=== PATIENT | male | born 1955 | race Caucasian/White ===

== ENCOUNTER → 2016-10-03 | Outpatient (CLI) | payer BC ==
[2016-10-03 12:20] VITALS: BP 130/90
[2016-10-03 12:50] VITALS: BP 135/86
== END | disposition home or self-care (01) ==
LOC: CHF HDHVI 12:21
PROVIDERS: ATTEND Internal Medicine Cardiovascular Disease
DX: I11.0 Hypertensive heart disease with heart failure (principal); I25.10 Atherosclerotic heart disease of native coronary artery without angina pectoris; I48.91 Unspecified atrial fibrillation; I82.409 Acute embolism and thrombosis of unspecified deep veins of unspecified lower extremity; R79.1 Abnormal coagulation profile
CPT/HCPCS: G0463

== ENCOUNTER → 2017-01-19 | Outpatient (CLI) | payer BC ==
[~2017-01-19] MED LIST: KETOROLAC TROMETH 60MG/2ML VIAL IM ONE
[2017-01-19 09:55] VITALS: BP 131/93
[2017-01-19 10:50] VITALS: BP 130/91
[2017-01-19 14:36] LABS: INR 4.5 (0.7-1.3); Prothrombin Time 54.5 sec (9.0-12.0)
[2017-01-20 05:06] LABS: Rheumatoid Arthritis Factor <10.0 IU/mL (0.0-13.9)
== END | disposition home or self-care (01) ==
LOC: CHF HDHVI 10:07
PROVIDERS: ATTEND Internal Medicine Cardiovascular Disease
DX: M05.9 Rheumatoid arthritis with rheumatoid factor, unspecified (principal); Z13.0 Encounter for screening for diseases of the blood and blood-forming organs and certain disorders involving the immune mechanism
CPT/HCPCS: 85610; 86038; 86225; 86431; 96372; G0463; J1885

== ENCOUNTER → 2017-01-22 | Outpatient (CLI) | payer BC | END | disposition home or self-care (01) | LOC: XY 12:07 | PROVIDERS: ATTEND Internal Medicine Cardiovascular Disease | DX: R06.00 Dyspnea, unspecified (principal) | CPT/HCPCS: 78582; A9540; A9558 ==

== ENCOUNTER → 2017-02-20 | Outpatient (CLI) | payer BC ==
[2017-02-20 12:15] VITALS: BP 144/83
[2017-02-20 12:30] VITALS: BP 129/88
[2017-02-20 13:32] LABS: INR 4.6 (0.7-1.3); Prothrombin Time 55.7 sec (9.0-12.0)
== END | disposition home or self-care (01) ==
LOC: CHF HDHVI 12:32
PROVIDERS: ATTEND Internal Medicine Cardiovascular Disease
DX: I50.9 Heart failure, unspecified (principal); Z79.01 Long term (current) use of anticoagulants
CPT/HCPCS: 85610; G0463

== ENCOUNTER → 2017-03-01 | Outpatient (CLI) | payer BC ==
[2017-03-01 09:12] LABS: Prothrombin Time 24.1 sec (9.0-12.0)
== END | disposition home or self-care (01) ==
LOC: LAB 08:50
PROVIDERS: ATTEND Internal Medicine Cardiovascular Disease
DX: R79.1 Abnormal coagulation profile (principal)
CPT/HCPCS: 85610

== ENCOUNTER → 2017-04-03 | Outpatient (CLI) | payer BC ==
[2017-04-03 12:02] LABS: Prothrombin Time 24.3 sec (9.0-12.0)
== END | disposition home or self-care (01) ==
LOC: LAB 11:38
PROVIDERS: ATTEND Internal Medicine Cardiovascular Disease
DX: R79.1 Abnormal coagulation profile (principal)
CPT/HCPCS: 85610

== ENCOUNTER → 2017-05-25 | Outpatient (CLI) | payer BC ==
[2017-05-25 10:47] LABS: INR 2.9 (0.7-1.3); Prothrombin Time 35.2 sec (9.0-12.0)
== END | disposition home or self-care (01) ==
LOC: LAB 10:30
PROVIDERS: ATTEND Internal Medicine Cardiovascular Disease
DX: R79.1 Abnormal coagulation profile (principal)
CPT/HCPCS: 85610

== ENCOUNTER → 2017-06-21 | Outpatient (CLI) | payer BC ==
[~2017-06-21] VITALS: Ht 33 cm; Wt 0.5 kg
[2017-06-21 15:45] VITALS: BP 143/98
[2017-06-21 16:38] VITALS: BP 158/90
== END | disposition home or self-care (01) ==
LOC: CHF HDHVI 15:48
PROVIDERS: ATTEND Internal Medicine Cardiovascular Disease
DX: I50.9 Heart failure, unspecified (principal); I25.10 Atherosclerotic heart disease of native coronary artery without angina pectoris; E66.9 Obesity, unspecified; M54.9 Dorsalgia, unspecified; G89.29 Other chronic pain; Z79.899 Other long term (current) drug therapy
CPT/HCPCS: 96372; G0463; J1885

== ENCOUNTER → 2017-07-06 | Outpatient (CLI) | payer BC ==
[2017-07-06 12:51] LABS: Basophils # (auto) 0 uL; Basophils % (auto) 0.5 % (0.0-2.0); Eosinophils # (auto) 0.1 uL; Eosinophils % (auto) 1.1 % (0.0-7.0); Hematocrit 46.7 % (41.0-53.0); Hemoglobin 15.7 g/dL (13.5-17.5); Lymphocytes # (auto) 2.1 uL; Lymphocytes % (auto) 26.8 % (10.0-50.0); Mean Corpuscular Hemoglobin 30.2 pg (28.0-32.0); Mean Corpuscular Hgb Conc. 33.5 g/dL (32.0-36.0); Mean Platelet Volume 7.8 fL (6.9-10.8); Monocytes # (auto) 0.8 uL; Monocytes % (auto) 10.2 % (0.0-12.0); Neutrophils # (auto) 4.8 uL; Neutrophils % (auto) 61.4 % (37.0-80.0); Nucleated Red Blood Cells % 0.1 %; Platelet Count (auto) 252 10^3/uL (140-450); Red Cell Distribution Width 14.5 % (11.8-14.3); White Blood Cell 7.8 10^3/uL (4.4-10.8)
[2017-07-06 13:11] LABS: BUN/Creatinine Ratio 9.5; Bilirubin, Total 0.5 mg/dL (0.2-1.0); Calcium 8.8 mg/dL (8.5-10.1); Potassium 4.2 mmol/L (3.5-5.1); Total Protein 8.5 g/dL (6.4-8.2)
== END | disposition home or self-care (01) ==
LOC: LAB 11:41
PROVIDERS: ATTEND Internal Medicine Cardiovascular Disease
DX: I10 Essential (primary) hypertension (principal); D64.9 Anemia, unspecified; R74.8 Abnormal levels of other serum enzymes
CPT/HCPCS: 36415; 80053; 82150; 83690; 85025

== ENCOUNTER → 2017-07-20 | Outpatient (CLI) | payer BC ==
[2017-07-20 13:47] LABS: INR 2.15 (0.9-1.15); Partial Thromboplastin Time 41.1 sec (22.64-33.71); Prothrombin Time 23.6 sec (9.37-12.3)
== END | disposition home or self-care (01) ==
LOC: LAB 08:55
PROVIDERS: ATTEND Internal Medicine Cardiovascular Disease
DX: R79.1 Abnormal coagulation profile (principal)
CPT/HCPCS: 36415; 85610; 85730

== ENCOUNTER → 2017-08-20 | Outpatient (CLI) | payer BC ==
[2017-08-20 11:06] LABS: INR 2.6 (0.7-1.3); Prothrombin Time 31.1 sec (9.0-12.0)
== END | disposition home or self-care (01) ==
LOC: LAB 10:25
PROVIDERS: ATTEND Internal Medicine Cardiovascular Disease
DX: R79.1 Abnormal coagulation profile (principal)
CPT/HCPCS: 85610

== ENCOUNTER → 2019-07-09 | Outpatient (CLI) | payer MEDICARE ==
[2019-07-09 11:56] LABS: Basophils # (auto) 0.1 uL; Basophils % (auto) 1.1 % (0.0-2.0); Eosinophils # (auto) 0.1 uL; Eosinophils % (auto) 1.5 % (0.0-7.0); Hematocrit 45.1 % (41.0-53.0); Hemoglobin 15.1 g/dL (13.5-17.5); Lymphocytes # (auto) 1.6 uL; Lymphocytes % (auto) 21.9 % (10.0-50.0); Mean Corpuscular Hemoglobin 31.6 pg (28.0-32.0); Mean Corpuscular Hgb Conc. 33.5 g/dL (32.0-36.0); Mean Corpuscular Volume 94.2 fL (80.0-100.0); Monocytes # (auto) 0.5 uL; Monocytes % (auto) 6.7 % (0.0-12.0); Neutrophils % (auto) 68.8 % (37.0-80.0); Nucleated Red Blood Cells % 0.1 %; Platelet Count (auto) 230 10^3/uL (140-450); Red Blood Cells 4.78 10^6/uL (4.5-5.90); White Blood Cell 7.2 10^3/uL (4.4-10.8)
[2019-07-09 12:25] LABS: Potassium 4.4 mmol/L (3.5-5.1)
[2019-07-09 12:52] LABS: Albumin 3.9 g/dL (3.4-5.0); BUN/Creatinine Ratio 8.5; Bilirubin, Total 0.8 mg/dL (0.2-1.0); CRP High Sensitivity 0.91 mg/dL (< 0.3); Total Protein 7.5 g/dL (6.4-8.2)
== END | disposition home or self-care (01) ==
LOC: LAB 10:44
PROVIDERS: ATTEND Internal Medicine Cardiovascular Disease
DX: L40.50 Arthropathic psoriasis, unspecified (principal); I25.10 Atherosclerotic heart disease of native coronary artery without angina pectoris
CPT/HCPCS: 36415; 80053; 85025; 85652; 86141

== ENCOUNTER → 2019-07-24 | Outpatient (CLI) | payer MEDICARE | END | disposition home or self-care (01) | LOC: Rad HDHVI 08:20 | PROVIDERS: ATTEND Internal Medicine Cardiovascular Disease | DX: R07.9 Chest pain, unspecified (principal); R06.02 Shortness of breath; I10 Essential (primary) hypertension; J44.9 Chronic obstructive pulmonary disease, unspecified | CPT/HCPCS: 93306 ==

== ENCOUNTER → 2019-07-29 | Outpatient (CLI) | payer MEDICARE ==
[~2019-07-29] VITALS: Ht 193 cm; Wt 136.5 kg
[2019-07-29 12:01] LABS: Urine Blood Negative /uL (Negative); Urine Specific Gravity 1.022 (1.001-1.035)
[2019-07-29 12:07] LABS: Basophils # (auto) 0.1 uL; Basophils % (auto) 1.3 % (0.0-2.0); Eosinophils # (auto) 0.1 uL; Eosinophils % (auto) 2.3 % (0.0-7.0); Hematocrit 45.5 % (41.0-53.0); Hemoglobin 15.2 g/dL (13.5-17.5); Lymphocytes # (auto) 1.2 uL; Lymphocytes % (auto) 21.9 % (10.0-50.0); Mean Corpuscular Hgb Conc. 33.5 g/dL (32.0-36.0); Mean Corpuscular Volume 95.5 fL (80.0-100.0); Monocytes # (auto) 0.4 uL; Monocytes % (auto) 6.8 % (0.0-12.0); Neutrophils # (auto) 3.6 uL; Neutrophils % (auto) 67.7 % (37.0-80.0); Nucleated Red Blood Cells % 0.1 %; Platelet Count (auto) 204 10^3/uL (140-450); Red Blood Cells 4.77 10^6/uL (4.5-5.90); Red Cell Distribution Width 16.3 % (11.8-14.3); White Blood Cell 5.3 10^3/uL (4.4-10.8)
[2019-07-29 12:08] LABS: Potassium 4.5 mmol/L (3.5-5.1)
[2019-07-29 12:13] LABS: Free T4 (Free Thyroxine) 0.79 ng/dL (0.89-1.76); Prostate Specific Antigen 1.12 ng/mL (0.0-4.0)
[2019-07-29 12:15] LABS: INR 3.09 (0.9-1.15); Partial Thromboplastin Time 44.4 sec (23.64-32.05)
[2019-07-29 12:19] LABS: Albumin 3.8 g/dL (3.4-5.0); Bilirubin, Total 0.5 mg/dL (0.2-1.0); Total Protein 7.2 g/dL (6.4-8.2)
== END | disposition home or self-care (01) ==
LOC: Rad HDHVI 08:18
PROVIDERS: ATTEND Internal Medicine Cardiovascular Disease
DX: E03.9 Hypothyroidism, unspecified (principal); K90.9 Intestinal malabsorption, unspecified; C61 Malignant neoplasm of prostate; E29.1 Testicular hypofunction; N39.0 Urinary tract infection, site not specified; D51.9 Vitamin B12 deficiency anemia, unspecified; R79.1 Abnormal coagulation profile; Z79.899 Other long term (current) drug therapy
CPT/HCPCS: 36415; 78452; 80053; 80061; 81003; 82306; 82607; 83036; 84153; 84403; 84439; 84443; 85025; 85610; 85730; 93017; 96374; A9500

== ENCOUNTER → 2019-08-04 | Outpatient (CLI) | payer MEDICARE | END | disposition home or self-care (01) | LOC: Rad HDHVI 09:41 | PROVIDERS: ATTEND Internal Medicine | DX: R07.89 Other chest pain (principal); R06.02 Shortness of breath | CPT/HCPCS: 71046 ==

== ENCOUNTER → 2019-08-19 | Outpatient (CLI) | payer MEDICARE ==
[2019-08-19 17:13] VITALS: BP 147/73
[2019-08-19 17:14] VITALS: BP 143/77
--- NOTE | 2019-08-19 17:14 | NUR ---
Signature Attestation Statement: I BERNIE HIGUERA performed this procedure EECP on this patient. Addendum: 08/19/19 at 1714 by BERNIE HIGUERA [email or web address] Amended: Links added.
--- NOTE | 2019-08-19 17:15 | NUR ---
Signature Attestation Statement: I BERNIE HIGUERA performed this procedure EECP on this patient. Addendum: 08/19/19 at 1716 by BERNIE HIGUERA [email or web address] Amended: Links added.
--- NOTE | 2019-08-19 17:21 | NUR ---
Signature Attestation Statement: I BERNIE HIGUERA performed this procedure EECP on this patient. Addendum: 08/19/19 at 1721 by BERNIE HIGUERA [email or web address] Amended: Links added.
== END | disposition home or self-care (01) ==
LOC: CHF HDHVI 14:53
PROVIDERS: ATTEND Internal Medicine Cardiovascular Disease
DX: I25.718 Atherosclerosis of autologous vein coronary artery bypass graft(s) with other forms of angina pectoris (principal); I50.42 Chronic combined systolic (congestive) and diastolic (congestive) heart failure; J44.9 Chronic obstructive pulmonary disease, unspecified; G47.30 Sleep apnea, unspecified; R06.02 Shortness of breath; R00.2 Palpitations; R06.09 Other forms of dyspnea
CPT/HCPCS: G0166

== ENCOUNTER → 2019-08-21 | Outpatient (CLI) | payer MEDICARE ==
[2019-08-21 16:28] VITALS: BP 146/88
--- NOTE | 2019-08-21 16:29 | NUR ---
Signature Attestation Statement: I BERNIE HIGUERA performed this procedure EECP on this patient. Addendum: 08/21/19 at 1629 by BERNIE HIGUERA [email or web address] Amended: Links added.
--- NOTE | 2019-08-21 16:29 | NUR ---
Signature Attestation Statement: I BERNIE HIGUERA performed this procedure EECP on this patient. Addendum: 08/21/19 at 1630 by BERNIE HIGUERA [email or web address] Amended: Links added.
[2019-08-21 16:38] VITALS: BP 141/86
--- NOTE | 2019-08-21 16:38 | NUR ---
Signature Attestation Statement: I BERNIE HIGUERA performed this procedure EECP on this patient. Addendum: 08/21/19 at 1638 by BERNIE HIGUERA [email or web address] Amended: Links added.
--- NOTE | 2019-08-21 16:39 | NUR ---
Signature Attestation Statement: I BERNIE HIGUERA performed this procedure EECP on this patient. Addendum: 08/21/19 at 1640 by BERNIE HIGUERA [email or web address] Amended: Links added.
== END | disposition home or self-care (01) ==
LOC: CHF HDHVI 15:26
PROVIDERS: ATTEND Internal Medicine Cardiovascular Disease
DX: I25.718 Atherosclerosis of autologous vein coronary artery bypass graft(s) with other forms of angina pectoris (principal); I50.42 Chronic combined systolic (congestive) and diastolic (congestive) heart failure; J44.9 Chronic obstructive pulmonary disease, unspecified; G47.30 Sleep apnea, unspecified; R06.02 Shortness of breath; R06.09 Other forms of dyspnea; R00.2 Palpitations
CPT/HCPCS: G0166

== ENCOUNTER → 2019-08-28 | Outpatient (CLI) | payer MEDICARE ==
[2019-08-28 16:01] VITALS: BP 161/87
--- NOTE | 2019-08-28 16:01 | NUR ---
Signature Attestation Statement: I BERNIE HIGUERA performed this procedure EECP on this patient. Addendum: 08/28/19 at 1602 by BERNIE HIGUERA [email or web address] Amended: Links added.
[2019-08-28 16:26] VITALS: BP 145/85
--- NOTE | 2019-08-28 16:26 | NUR ---
Signature Attestation Statement: I BERNIE HIGUERA performed this procedure EECP on this patient. Addendum: 08/28/19 at 1626 by BERNIE HIGUERA [email or web address] Amended: Links added.
--- NOTE | 2019-08-28 16:45 | NUR ---
Signature Attestation Statement: I BERNIE HIGUERA performed this procedure EECP on this patient. Addendum: 08/28/19 at 1645 by BERNIE HIGUERA [email or web address] Amended: Links added.
== END | disposition home or self-care (01) ==
LOC: CHF HDHVI 15:28
PROVIDERS: ATTEND Internal Medicine Cardiovascular Disease
DX: I25.718 Atherosclerosis of autologous vein coronary artery bypass graft(s) with other forms of angina pectoris (principal); I50.42 Chronic combined systolic (congestive) and diastolic (congestive) heart failure; J44.9 Chronic obstructive pulmonary disease, unspecified; G47.30 Sleep apnea, unspecified; R06.02 Shortness of breath; R00.2 Palpitations; R06.09 Other forms of dyspnea
CPT/HCPCS: G0166

== ENCOUNTER → 2019-08-29 | Outpatient (CLI) | payer MEDICARE ==
[2019-08-29 16:48] VITALS: BP 163/83
[2019-08-29 16:50] VITALS: BP 162/66
--- NOTE | 2019-08-29 16:50 | NUR ---
Signature Attestation Statement: I BERNIE HIGUERA performed this procedure EECP on this patient. Addendum: 08/29/19 at 1650 by BERNIE HIGUERA [email or web address] Amended: Links added.
--- NOTE | 2019-08-29 16:54 | NUR ---
Signature Attestation Statement: I BERNIE HIGUERA performed this procedure EECP on this patient. Addendum: 08/29/19 at 1654 by BERNIE HIGUERA [email or web address] Amended: Links added.
--- NOTE | 2019-08-29 16:54 | NUR ---
Signature Attestation Statement: I BERNIE HIGUERA performed this procedure EECP on this patient. Addendum: 08/29/19 at 1655 by BERNIE HIGUERA [email or web address] Amended: Links added.
--- NOTE | 2019-08-29 16:58 | NUR ---
Signature Attestation Statement: I BERNIE HIGUERA performed this procedure EECP on this patient. Addendum: 08/29/19 at 1658 by BERNIE HIGUERA [email or web address] Amended: Links added.
== END | disposition home or self-care (01) ==
LOC: Rad HDHVI 15:28
PROVIDERS: ATTEND Internal Medicine Cardiovascular Disease
DX: I25.718 Atherosclerosis of autologous vein coronary artery bypass graft(s) with other forms of angina pectoris (principal); I50.42 Chronic combined systolic (congestive) and diastolic (congestive) heart failure; J44.9 Chronic obstructive pulmonary disease, unspecified; G47.30 Sleep apnea, unspecified; R06.02 Shortness of breath; R00.2 Palpitations; R06.09 Other forms of dyspnea
CPT/HCPCS: G0166

== ENCOUNTER → 2019-09-19 | Outpatient (CLI) | payer MEDICARE ==
[2019-09-19 17:01] VITALS: BP 147/90
[2019-09-19 17:02] VITALS: BP 132/80
--- NOTE | 2019-09-19 17:02 | NUR ---
Signature Attestation Statement: I BERNIE HIGUERA performed this procedure EECP on this patient. Addendum: 09/19/19 at 1702 by BERNIE HIGUERA [email or web address] Amended: Links added.
--- NOTE | 2019-09-19 17:03 | NUR ---
Signature Attestation Statement: I BERNIE HIGUERA performed this procedure EECP on this patient. Addendum: 09/19/19 at 1703 by BERNIE HIGUERA [email or web address] Amended: Links added.
--- NOTE | 2019-09-19 17:05 | NUR ---
Signature Attestation Statement: I BERNIE HIGUERA performed this procedure EECP on this patient. Addendum: 09/19/19 at 1706 by BERNIE HIGUERA [email or web address] Amended: Links added.
== END | disposition home or self-care (01) ==
LOC: CHF HDHVI 15:30
PROVIDERS: ATTEND Internal Medicine Cardiovascular Disease
DX: I25.718 Atherosclerosis of autologous vein coronary artery bypass graft(s) with other forms of angina pectoris (principal); I50.42 Chronic combined systolic (congestive) and diastolic (congestive) heart failure; E11.9 Type 2 diabetes mellitus without complications; R06.02 Shortness of breath; J44.9 Chronic obstructive pulmonary disease, unspecified; G47.30 Sleep apnea, unspecified; R06.09 Other forms of dyspnea; R00.2 Palpitations
CPT/HCPCS: G0166

== ENCOUNTER → 2019-11-10 | Outpatient (CLI) | payer MEDICARE | END | disposition home or self-care (01) | LOC: LAB 10:46 | PROVIDERS: ATTEND Internal Medicine Cardiovascular Disease | DX: R79.1 Abnormal coagulation profile (principal) | CPT/HCPCS: 85610 ==

== ENCOUNTER → 2020-01-07 | Outpatient (CLI) | payer MEDICARE ==
[2020-01-07 12:04] LABS: Basophils # (auto) 0.1 10 ^3/uL (0-0.2); Basophils % (auto) 1.1 % (0.0-2.0); Eosinophils # (auto) 0.2 10 ^3/uL (0-0.8); Eosinophils % (auto) 2.8 % (0.0-7.0); Hematocrit 46.9 % (41.0-53.0); Hemoglobin 15.5 g/dL (13.5-17.5); Lymphocytes # (auto) 1.7 10 ^3/uL (0.4-5.4); Lymphocytes % (auto) 24.5 % (10.0-50.0); Mean Corpuscular Hemoglobin 30.5 pg (28.0-32.0); Mean Corpuscular Hgb Conc. 33.1 g/dL (32.0-36.0); Mean Corpuscular Volume 92.3 fL (80.0-100.0); Monocytes # (auto) 0.5 10 ^3/uL (0-1.3); Neutrophils # (auto) 4.4 10 ^3/uL (1.6-8.6); Neutrophils % (auto) 64.6 % (37.0-80.0); Nucleated Red Blood Cells % 0.1 %; Platelet Count (auto) 222 10^3/uL (140-450); Red Blood Cells 5.08 10^6/uL (4.5-5.90); Red Cell Distribution Width 14.3 % (11.8-14.3); White Blood Cell 6.9 10^3/uL (4.4-10.8)
[2020-01-07 12:13] LABS: Potassium 4.1 mmol/L (3.5-5.1)
[2020-01-07 12:21] LABS: Albumin 3.5 g/dL (3.4-5.0); BUN/Creatinine Ratio 14.1; Bilirubin, Total 0.3 mg/dL (0.2-1.0); Calcium 8.4 mg/dL (8.5-10.1); Free T4 (Free Thyroxine) 0.85 ng/dL (0.89-1.76); Total Protein 7.5 g/dL (6.4-8.2)
== END | disposition home or self-care (01) ==
LOC: LAB 10:43
PROVIDERS: ATTEND Internal Medicine Cardiovascular Disease
DX: E78.5 Hyperlipidemia, unspecified (principal); E03.9 Hypothyroidism, unspecified; K90.9 Intestinal malabsorption, unspecified; C61 Malignant neoplasm of prostate; D51.9 Vitamin B12 deficiency anemia, unspecified; N39.0 Urinary tract infection, site not specified; Z79.899 Other long term (current) drug therapy
CPT/HCPCS: 36415; 80053; 80061; 82306; 82607; 83036; 84403; 84439; 84443; 85025

== ENCOUNTER → 2020-07-13 | Outpatient (CLI) | payer MEDICARE | END | disposition home or self-care (01) | LOC: Rad HDHVI 14:35 | PROVIDERS: ATTEND Internal Medicine Cardiovascular Disease | DX: I20.0 Unstable angina (principal); R00.2 Palpitations | CPT/HCPCS: 93306 ==

== ENCOUNTER → 2020-07-15 | Outpatient (CLI) | payer MEDICARE ==
[~2020-07-15] VITALS: Ht 193 cm; Wt 133.8 kg
[~2020-07-15] MED LIST changes: +ADENOSINE 112 MG in GIVE UN-DILUTED 0 ML IV ONE; +ADENOSINE 90 MG/30 ML INJ IV ONE; -KETOROLAC TROMETH 60MG/2ML VIAL IM ONE
== END | disposition home or self-care (01) ==
LOC: Rad HDHVI 09:27
PROVIDERS: ATTEND Internal Medicine Cardiovascular Disease
DX: Z01.810 Encounter for preprocedural cardiovascular examination (principal); I10 Essential (primary) hypertension
CPT/HCPCS: 78452; 93005; 96374; 96375; A9500; J0153

== ENCOUNTER → 2020-07-23 | Outpatient (CLI) | payer MEDICARE ==
[2020-07-23 12:03] LABS: Basophils # (auto) 0.1 10 ^3/uL (0-0.2); Basophils % (auto) 1.1 % (0.0-2.0); Eosinophils # (auto) 0.2 10 ^3/uL (0-0.8); Eosinophils % (auto) 3.6 % (0.0-7.0); Hematocrit 41.2 % (41.0-53.0); Hemoglobin 13.8 g/dL (13.5-17.5); Lymphocytes # (auto) 1.3 10 ^3/uL (0.4-5.4); Lymphocytes % (auto) 24.7 % (10.0-50.0); Mean Corpuscular Hemoglobin 31.2 pg (28.0-32.0); Mean Corpuscular Hgb Conc. 33.6 g/dL (32.0-36.0); Mean Corpuscular Volume 92.9 fL (80.0-100.0); Monocytes # (auto) 0.5 10 ^3/uL (0-1.3); Neutrophils # (auto) 3.1 10 ^3/uL (1.6-8.6); Neutrophils % (auto) 61.6 % (37.0-80.0); Platelet Count (auto) 194 10^3/uL (140-450); Red Blood Cells 4.44 10^6/uL (4.5-5.90); Red Cell Distribution Width 16.3 % (11.8-14.3); White Blood Cell 5.1 10^3/uL (4.4-10.8)
[2020-07-23 12:12] LABS: Urine Blood Negative /uL (Negative); Urine Specific Gravity 1.018 (1.001-1.035)
[2020-07-23 12:16] LABS: INR 2.11 (0.9-1.15); Partial Thromboplastin Time 38.7 sec (23.0-31.2)
[2020-07-23 12:17] LABS: Potassium 4.4 mmol/L (3.5-5.1)
[2020-07-23 12:21] LABS: Free T4 (Free Thyroxine) 0.78 ng/dL (0.89-1.76); Prostate Specific Antigen 1.36 ng/mL (0.0-4.0)
[2020-07-23 13:16] LABS: Albumin 3.5 g/dL (3.4-5.0); BUN/Creatinine Ratio 9.2; Bilirubin, Total 0.4 mg/dL (0.2-1.0); Calcium 8.7 mg/dL (8.5-10.1); Total Protein 7.1 g/dL (6.4-8.2)
== END | disposition home or self-care (01) ==
LOC: LAB 08:46
PROVIDERS: ATTEND Internal Medicine Cardiovascular Disease
DX: C61 Malignant neoplasm of prostate (principal); D51.3 Other dietary vitamin B12 deficiency anemia; I11.0 Hypertensive heart disease with heart failure; I50.42 Chronic combined systolic (congestive) and diastolic (congestive) heart failure; E11.9 Type 2 diabetes mellitus without complications; E55.9 Vitamin D deficiency, unspecified; D64.9 Anemia, unspecified; R00.2 Palpitations; R53.1 Weakness; R30.0 Dysuria
CPT/HCPCS: 36415; 80053; 80061; 81003; 82306; 82607; 83036; 84153; 84403; 84439; 84443; 85025; 85610; 85730